=== PATIENT | male | born 1965 | race Hispanic/Latino ===

== ENCOUNTER 2022-08-21 11:58 | Inpatient (IN) | payer OTHER ==
[~2022-08-21] VITALS: Ht 154.9 cm; Wt 43.3 kg
[2022-08-21] MEDS ORDERED: 0.9%NACL 1000ML 1,000 ML IV SCH ×3 (13:00)
[2022-08-21 13:17] LABS: ABG BASE EXCESS -5.6 mmol/L (-2.0-3.0); ABG HCO3 17.9 mmol/L (21.0-28.0); ABG OXYGEN SATURATION 97.1 % (95.0-99.0); ABG PCO2 30 mmHg (35-48)
[2022-08-21 13:26] LABS: EOSINOPHILS % (AUTO) 0.1 % (0.0-8.0); HEMATOCRIT 39.7 % (42-54); LYMPHOCYTES % (AUTO) 17.7 % (21.0-51.0); MEAN CORPUSCULAR HEMOGLOBIN 29.6 pg (27.0-33.0); MEAN CORPUSCULAR HGB CONC 34.3 g/dL (32.0-36.0); MEAN CORPUSCULAR VOLUME 86.3 fL (79-99); NEUTROPHILS % (AUTO) 76.9 % (40.0-77.0); PLATELET COUNT (AUTO) 392 K/uL (130-400); RED CELL DISTRIBUTION WIDTH 14.4 % (11.0-15.5); WHITE BLOOD COUNT (AUTO) 9.1 K/uL (4.8-10.8)
[2022-08-21 13:38] LABS: CARBON DIOXIDE 22 mmol/L (21-32); CHLORIDE 94 mmol/L (101-111); CREATININE 2.5 mg/dL (0.5-1.5); GLOMERULAR FILTR. RATE CALC 29 mL/min (>90); GLUCOSE,RANDOM 105 mg/dL (70-105); SODIUM SERUM 129 mmol/L (136-145); UREA NITROGEN, BLOOD 4 mg/dL (7-18)
[2022-08-21 13:47] LABS: ALANINE AMINOTRANSFERASE 8 U/L (12-78); ALBUMIN 3.1 g/dL (3.5-5.0); ASPARTATE AMINOTRANSFERASE 15 U/L (10-37); CREATINE KINASE, TOTAL 88 U/L (21-232); TOTAL PROTEIN, SERUM 7.6 g/dL (6.0-8.3)
[2022-08-21] MEDS ORDERED: POTASSIUM CHLORIDE 10% ELIXIR 20 MEQ/15 ML UDCUP PO SCH (14:00)
[2022-08-21 14:30] VITALS: BP 136/65
[2022-08-21] MEDS ORDERED: PHARMACY COMMUNICATION MISC PRN (15:00)
[2022-08-21] MEDS ORDERED: CHLORDIAZEPOXIDE HCL 25 MG CAP PO PRN (15:00)
[2022-08-21] MEDS ORDERED: LORAZEPAM 2 MG/ML 1 ML VIAL IVP PRN (15:00)
[2022-08-21] MEDS ORDERED: THIAMINE HCL 100 MG, FOLIC ACID 1 MG, M.V.I. IV [ADULT] 10 ML in 0.9%NACL 1000ML 1,000 ML IV SCH (15:00)
[2022-08-21 15:23] LABS: APPEARANCE,URINE CLEAR (CLEAR); BILIRUBIN,URINE NEGATIVE (NEGATIVE); COLOR,URINE COLORLESS (YELLOW); GLUCOSE, URINE (UA) NEGATIVE (NEGATIVE); KETONES,URINE 60 mg/dL (NEGATIVE); LEUKOCYTE ESTERASE ,URINE NEGATIVE Leu/uL (NEGATIVE); NITRATE,URINE NEGATIVE (NEGATIVE); OCCULT BLOOD,URINE NEGATIVE (NEGATIVE); PH,URINE 5.5 (5.0-8.0); PROTEIN,URINE 10 mg/dL (NEGATIVE); UROBILINOGEN,URINE 0.2 mg/dL (0.2-1.0)
[2022-08-21 15:31] LABS: AMPHET/METH SCREEN,URINE NEGATIVE (NEGATIVE); BACTERIA,URINE RARE /HPF (None Seen); BARBITURATE SCREEN, URINE NEGATIVE (NEGATIVE); BENZODIAZEPINES SCREEN,URINE NEGATIVE (NEGATIVE); CANNABINOID SCREEN,URINE NEGATIVE (NEGATIVE); COCAINE SCREEN,URINE NEGATIVE (NEGATIVE); CREATININE,URINE RANDOM 33 mg/dL (30-135); MUCUS,URINE RARE LPF (None Seen); OPIATE SCREEN,URINE NEGATIVE (NEGATIVE); PHENCYCLIDINE SCREEN,URINE NEGATIVE (NEGATIVE); SODIUM,URINE RANDOM 43 mmol/l (40-220); SQUAMOUS EPITHELIAL CELL,UR RARE /HPF (0-2); WBC,URINE 0-1 /HPF (0-1)
[2022-08-21 17:34] LABS: HEMOGLOBIN A1C 6.1 % (4.0-6.0)
[2022-08-21 18:19] LABS: AMMONIA 15 umol/L (11-32); THYROID STIMULATING HORMONE 1.19 uIU/mL (0.36-3.74)
[2022-08-21 18:20] LABS: CRP QUANTITATIVE < 2.00 mg/L (0.00-9.0)
[2022-08-21 18:46] LABS: CREATININE 1.9 mg/dL (0.5-1.5); MAGNESIUM 1.5 mg/dL (1.80-2.40); POTASSIUM 3.7 mmol/L (3.5-5.1)
[2022-08-21 19:30] VITALS: BP 148/83
[2022-08-21] MEDS ORDERED: HYDROCODONE/ACETAMINOPHEN 5/325 MG TAB PO ONE (20:30)
[2022-08-21] MEDS ORDERED: ACETAMINOPHEN 325 MG TAB PO PRN (20:30)
[2022-08-21] MEDS: MAGNESIUM 2GM PREMIX 50ML 50 ML IV PRN (20:51)
[2022-08-21] MEDS: DEXTROSE 5 % AND 0.9 % NACL 1,000 ML IV SCH (21:54)
[2022-08-21 23:30] VITALS: BP 121/64
[2022-08-22 05:00] VITALS: BP 131/70
[2022-08-22 06:53] LABS: BASOPHILS % (AUTO) 0.7 % (0.0-5.0); EOSINOPHILS % (AUTO) 0.4 % (0.0-8.0); HEMATOCRIT 30.7 % (42-54); LYMPHOCYTES % (AUTO) 16.2 % (21.0-51.0); MEAN CORPUSCULAR HEMOGLOBIN 29.7 pg (27.0-33.0); MEAN CORPUSCULAR HGB CONC 35.2 g/dL (32.0-36.0); MEAN CORPUSCULAR VOLUME 84.3 fL (79-99); MONOCYTES % (AUTO) 7.9 % (3.0-13.0); NEUTROPHILS % (AUTO) 74.3 % (40.0-77.0); PLATELET COUNT (AUTO) 324 K/uL (130-400); RED BLOOD CELL COUNT(AUTO) 3.64 MIL/uL (4.50-6.20); RED CELL DISTRIBUTION WIDTH 14.4 % (11.0-15.5); WHITE BLOOD COUNT (AUTO) 7.6 K/uL (4.8-10.8)
[2022-08-22 07:10] LABS: CREATININE 1.9 mg/dL (0.5-1.5); MAGNESIUM 1.6 mg/dL (1.80-2.40)
[2022-08-22 07:40] LABS: POTASSIUM 2.7 mmol/L (3.5-5.1)
[2022-08-22 07:59] VITALS: BP 132/62
[2022-08-22] MEDS ORDERED: FOLIC ACID 5 MG/ML VIAL IV SCH (09:00)
[2022-08-22] MEDS: THIAMINE HCL 100 MG/ML 2ML VIAL IV SCH (09:15)
[2022-08-22] MEDS: FAMOTIDINE 20MG VIAL IV SCH ×2 (09:15→19:48)
[2022-08-22] MEDS: ENOXAPARIN SODIUM 30 MG/0.3 ML SQ SCH (09:16)
[2022-08-22] MEDS: ACETAMINOPHEN 325 MG TAB PO PRN ×2 (09:25→17:42)
[2022-08-22] MEDS ORDERED: POTASSIUM CHLORIDE 10% ELIXIR 20 MEQ/15 ML UDCUP PO PRN (10:00)
[2022-08-22] MEDS: KCL 20 MEQ ERTAB PO PRN ×3 (11:20→17:39)
[2022-08-22] MEDS: DEXTROSE 5 % AND 0.9 % NACL 1,000 ML IV SCH (11:22)
[2022-08-22 12:00] VITALS: BP 123/58
[2022-08-22] MEDS ORDERED: LIDOCAINE HCL-MPF 1% 2ML VIAL IV SCH (12:00)
[2022-08-22] MEDS: POTASSIUM CHLORIDE 20MEQ/100ML 100 ML IV PRN ×2 (12:00→20:08)
[2022-08-22] MEDS: MAGNESIUM 2GM PREMIX 50ML 50 ML IV PRN (15:27)
[2022-08-22 16:00] VITALS: BP 133/68
[2022-08-22 20:29] VITALS: BP 141/72
[2022-08-22 23:57] VITALS: BP 128/66
[2022-08-23] MEDS: DEXTROSE 5 % AND 0.9 % NACL 1,000 ML IV SCH (00:10)
[2022-08-23 03:52] VITALS: BP 127/68
[2022-08-23 06:12] LABS: HEMATOCRIT 28.9 % (42-54); MEAN CORPUSCULAR HEMOGLOBIN 29.6 pg (27.0-33.0); MEAN CORPUSCULAR HGB CONC 34.3 g/dL (32.0-36.0); MEAN CORPUSCULAR VOLUME 86.5 fL (79-99); RED BLOOD CELL COUNT(AUTO) 3.34 MIL/uL (4.50-6.20); RED CELL DISTRIBUTION WIDTH 14.3 % (11.0-15.5); WHITE BLOOD COUNT (AUTO) 7.4 K/uL (4.8-10.8)
[2022-08-23 06:27] LABS: ALBUMIN 2.5 g/dL (3.5-5.0); MAGNESIUM 1.7 mg/dL (1.80-2.40); POTASSIUM 3.6 mmol/L (3.5-5.1)
[2022-08-23] MEDS: MAGNESIUM 2GM PREMIX 50ML 50 ML IV PRN (06:33)
[2022-08-23 07:40] VITALS: BP 149/76
[2022-08-23] MEDS ORDERED: COMPOUND IV REFRIGERATED 1 EACH IVSOLN MISC PRN (08:30)
[2022-08-23] MEDS: FAMOTIDINE 20MG VIAL IV SCH (08:45)
[2022-08-23] MEDS: THIAMINE HCL 100 MG/ML 2ML VIAL IV SCH (08:45)
[2022-08-23] MEDS: KCL 20 MEQ ERTAB PO PRN (08:46)
[2022-08-23] MEDS: ENOXAPARIN SODIUM 30 MG/0.3 ML SQ SCH (08:47)
[2022-08-23 11:40] VITALS: BP 148/79
== END 2022-08-23 14:10 | disposition home or self-care (01) | DRG 682 ==
LOC: EDH 11:58 → EDHIP 11:59 → UNDOADMIN 14:51 → 3BH 16:30 → EDHIP 16:30
PROVIDERS: ADMIT Internal Medicine; ATTEND Internal Medicine
DX: N17.9 Acute kidney failure, unspecified (principal); G93.41 Metabolic encephalopathy; R53.2 Functional quadriplegia; E87.1 Hypo-osmolality and hyponatremia; E87.29 Other acidosis; E44.1 Mild protein-calorie malnutrition; Z68.1 Body mass index [BMI] 19.9 or less, adult; Z20.822 Contact with and (suspected) exposure to COVID-19; E86.0 Dehydration; E87.6 Hypokalemia; R62.7 Adult failure to thrive; E86.1 Hypovolemia; E88.09 Other disorders of plasma-protein metabolism, not elsewhere classified; E87.5 Hyperkalemia; F10.229 Alcohol dependence with intoxication, unspecified; Z59.00 Homelessness unspecified; Z74.01 Bed confinement status; Z85.21 Personal history of malignant neoplasm of larynx; Z85.819 Personal history of malignant neoplasm of unspecified site of lip, oral cavity, and pharynx; Z91.199 Patient's noncompliance with other medical treatment and regimen due to unspecified reason; Z92.3 Personal history of irradiation
CPT/HCPCS: 36415; 36600; 70450; 71045; 72125; 73620; 76770; 80048; 80053; 80305; 81001; 82010; 82140; 82550; 82570; 82803; 82948; 83036; 83605; 83735; 84145; 84300; 84443; 84484; 85025; 85027; 86140; 87635; 92610; 93005; 97039; G0378; J1650; J3411; J3475; J3480; J3490; J7030; J7042